=== PATIENT | female | born 1955 | race Caucasian/White ===

== ENCOUNTER 2023-11-12 08:30 | Emergency (ER) | payer MEDICARE ==
[~2023-11-12] VITALS: Ht 165.1 cm; Wt 60.1 kg
[2023-11-12 09:13] LABS: Urine Bacteria FEW /hpf (None Seen); Urine Blood 1+ /uL (Negative); Urine Clarity Clear (Clear); Urine Protein, UAD Negative (Negative); Urine Specific Gravity 1.001 (1.001-1.035); Urine Urobilinogen Normal (Negative); Urine WBC 8 /hpf (0 - 5)
[2023-11-12 09:15] LABS: Urine Color Yellow (Yellow)
[2023-11-12 09:55] VITALS: BP 177/101; PULSE 81; RESP 18; TEMP 97.5; O2SAT 96
[2023-11-12] MEDS ORDERED: NITR-87 PO (10:51)
== END 2023-11-12 10:59 | disposition home or self-care (01) ==
LOC: ER 08:30
DX: R30.0 Dysuria (principal); I10 Essential (primary) hypertension; Z79.899 Other long term (current) drug therapy; Z88.1 Allergy status to other antibiotic agents; Z88.2 Allergy status to sulfonamides; Z88.8 Allergy status to other drugs, medicaments and biological substances
CPT/HCPCS: 81001